=== PATIENT | female | born 1950 | race Caucasian/White ===

== ENCOUNTER 2020-01-12 14:08 | Emergency (ER) | payer MEDICARE, OTHER, SELFPAY ==
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
[2020-01-12 14:14] VITALS: BP 133/66; PULSE 69; RESP 15; O2SAT 98; BMI 22.6
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
[2020-01-12] MEDS: ONDANSETRON 4 MG ODT SL (14:43)
[2020-01-12 15:07] VITALS: PULSE 67; RESP 21; O2SAT 97
[2020-01-12 15:11] VITALS: BP 122/71; PULSE 64; O2SAT 98
== END 2020-01-12 15:16 | disposition home or self-care (01) ==
PROVIDERS: Emergency Provider Emergency Medicine; PCP Family Medicine
DX: S09.90XA Unspecified injury of head, initial encounter (principal); S16.1XXA Strain of muscle, fascia and tendon at neck level, initial encounter; M25.551 Pain in right hip; M25.511 Pain in right shoulder; R42 Dizziness and giddiness; V19.9XXA Pedal cyclist (driver) (passenger) injured in unspecified traffic accident, initial encounter; F31.9 Bipolar disorder, unspecified
CPT/HCPCS: 70450; 72125; 73502; 99283; 99284